=== PATIENT | female | born 1945 | race Caucasian/White ===

== ENCOUNTER → 2019-01-01 15:47 | Outpatient (CLI) | payer MEDICARE, SELFPAY ==
[2019-01-01 17:13] LABS: AST(SGOT) 25 U/L (15-37); Alanine Aminotransfer ALT/SGPT 29 U/L (13-56); Albumin, Serum 3.7 g/dL (3.2-5.0); Alkaline Phosphatase 74 U/L (45-117); Anion Gap 8 (5-15); BUN 18 mg/dL (7-18); Calcium,Total 8.9 mg/dL (8.5-10.1); Chloride 106 mmol/L (98-107); Cholesterol 151 mg/dL (200); Creatinine, Serum 0.64 mg/dL (0.55-1.02); EST Glomerular Filtration Rate 96 mL/min (>60); Est Glom Filt Rate - Afr Amer 116 mL/min (>60); Globulin 3.6 g/dL (2.2-4.2); Glucose 92 mg/dL (74-106); High Density Lipoprotein 58 mg/dL; Potassium 4.4 mmol/L (3.5-5.1); Protein, Total 7.3 g/dL (6.4-8.2); Sodium Level 138 mmol/L (136-145); Triglycerides 81 mg/dL; Very Low Density Lipoprotein 16 mg/dL (5-40)
== END ==
PROVIDERS: Family Provider Family Medicine; PCP Family Medicine; Referring Provider Family Medicine; Visit Provider Family Medicine
DX: E78.5 Hyperlipidemia, unspecified (principal); I10 Essential (primary) hypertension
CPT/HCPCS: 80053; 80061

== ENCOUNTER 2019-06-14 17:53 | Emergency (ER) | payer MEDICARE, SELFPAY ==
[2019-06-14 17:54] VITALS: BP 158/98; PULSE 71; RESP 16; TEMP 36.6; O2SAT 97; BMI 31.0
--- NOTE | 2019-06-14 18:21 | EKG12_ITS ---
Test Reason : CP Blood Pressure : / mmHG Vent. Rate : 067 BPM Atrial Rate : 067 BPM P-R Int : 170 ms QRS Dur : 088 ms QT Int : 426 ms P-R-T Axes : 053 040 050 degrees QTc Int : 450 ms Normal sinus rhythm Normal ECG Confirmed by KENDRICK BRAY, RIGOBERTO ([id number]), advertising editor KOMAL BURRELL ([id number]) on 06/16/2019 1:51:26 PM Referred By: LEAH/SORAYA Confirmed By:RIGOBERTO MARKS MD
--- NOTE | 2019-06-14 18:25 | RAD_ITS ---
STUDY: X-RAY CHEST REASON FOR EXAM: Female, 73 years old. patient complains of neck and shoulder pain TECHNIQUE: Frontal view of the chest COMPARISON: None. FINDINGS: The lungs are clear and expanded. There is no demonstrated pleural abnormality. Normal size heart. Normal mediastinum and airam. Normal visualized pulmonary arteries. Normal visualized aortic arch and descending thoracic aorta. Normal visualized thoracic spine. Normal visualized ribs, clavicles, and shoulders. There is no demonstrated abnormality of the visualized soft tissue structures of the upper abdomen. RAD/Chest 1 View (Portable) IMPRESSION: Normal x-ray examination of the chest. Electronically Signed: Lidia Fournier, at 18:46 EST Tel , Service support ,
[2019-06-14 18:31] VITALS: PULSE 77; RESP 16; O2SAT 97
--- NOTE | 2019-06-14 18:39 | ED.DCSUM_ITS ---
- ER Visit Summary Date of Service: 06/14/19 Chief Complaint: Chest and now back pain History of Present Illness: The patient is a 73 F past medical history of Ovalle's palsy, meningioma, hypertension high cholesterol. No prior cardiac disease. States the last week she has had intermittent chest pain not associated with exertion. No shortness of breath, nausea or diaphoresis. Worse with movement of her left arm. That is since resolved. She said she was taken ibuprofen which made the pain better. And now she has right-sided posterior upper back and neck pain. Worse with head movement. 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 Physical Examination: All signs are stable afebrile. Pulse ox 97% room air no signs hypoxia. H EENT exam unremarkable. Neck right trapezius tenderness the same pain she is having. Worse with head movement. No meningismus. No lymphadenopathy. Lungs clear to auscultation bilaterally. Heart regular rate and rhythm no murmur. Rate about 70. No murmur. Chest wall nontender. Ab domen soft nontender normal bowel sounds no peritoneal signs. Patient moving all 4 extremities. Neurovascular intact. 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 Equal symmetrical dorsi plantarflexion. Calves nontender without edema or cords. Neurologically she is awake alert with no focal motor deficits. Exam is consistent with musculoskeletal back pain. Test Results: EKG shows a sinus rhythm rate of 67 with no acute signs of ID or ischemia. Unchanged from prior EKG from last year and before. 1 view chest x-ray read both by myself and radiologist shows no acute abnormality. Normal cardiac silhouette mediastinum. CBC normal. Chemistries normal. Troponin normal. Emergency Department Course and Treatment: Patient will undergo cardiac work-up even though clinically this sounds like it is musculoskeletal pain. Treatment Plan: Work-up negative. History more consistent with a musculoskeletal etiology. Discharged home outpatient follow-up. Tylenol and/or Motrin for pain. Disposition: Discharge Impression: She has skeletal back and chest pain This note was generated with [employer] dictation software. It may contain incorrect words, spelling, and punctuation that were not noted in review of the chart prior to signing ED Disposition - Plan for ED Patient: Referrals: Cortez Ordaz III, MD [Primary Care Provider] -
[2019-06-14 18:46] LABS: Absolute Lymphocyte Count 1.89 X10^3/uL (0.83-4.51); Absolute Neutrophil Count 3.5 X10^3/uL (2.0-7.7); Basophil# 0.06 X10^3/uL; Basophil% 0.9 % (0-1); Eosinophil# 0.39 X10^3/uL; Eosinophils% 6.1 % (0-5); Hematocrit 38.8 % (37-47); Hemoglobin 12.6 g/dL (12.0-15.0); Lymphocyte # 1.89 X10^3/ul (4.0); Lymphocyte % 29.3 % (19-41); Mean Corp Hgb Conc 32.5 g/dL (32-36); Mean Corpuscular Hgb 27.8 pg (27.0-32.0); Mean Corpuscular Volume 85.7 fL (81-99); Mean Platelet Vol. 8.7 fl (6.2-12.0); Monocyte# 0.57 X10^3/uL; Monocyte% 8.9 % (0-10); NRBC Flagged by Analyzer 0 % (0-5); Neutrophil # 3.51 X10^3/uL (2.7-7.7); Neutrophil % 54.5 % (47-70); Platelet Count 294 K/mm3 (150-450); RBC Distribution Width CV 12.7 % (11.6-14.6); RBC Distribution Width SD 39.8 fl (35.1-43.9); Red Blood Count 4.53 M/mm3 (4.2-5.4); White Blood Count 6.4 K/mm3 (4.4-11.0)
[2019-06-14 19:06] LABS: Anion Gap 5 (5-15); BUN 22 mg/dL (7-18); BUN/Creat Ratio 33.9 RATIO (10-20); Chloride 106 mmol/L (98-107); Creatinine, Serum 0.65 mg/dL (0.55-1.02); EST Glomerular Filtration Rate 94 mL/min (>60); Est Glom Filt Rate - Afr Amer 114 mL/min (>60); Estimated Creatinine Clearance 40.21 ml/min; Glucose 88 mg/dL (74-106); Potassium 3.9 mmol/L (3.5-5.1); Sodium Level 139 mmol/L (136-145)
--- NOTE | 2019-06-14 19:30 | ED.DEP ---
ED Disposition - Plan for ED Patient: Disposition: Home or Assisted Living Referrals: Cortez Ordaz III, MD [Primary Care Provider] - 3-5 Days if not improving Additional Instructions: Peers to be musculoskeletal pain. Hot shower, warm bath and massage. Tylenol and Motrin for pain. Follow-up with your doctor if not improving or return to the ER if feeling a lot worse.
[2019-06-14 19:50] VITALS: PULSE 65; RESP 16; O2SAT 98
== END 2019-06-14 19:51 | disposition home or self-care (01) ==
PROVIDERS: Emergency Provider Emergency Medicine; PCP Family Medicine
DX: R07.89 Other chest pain (principal); M54.2 Cervicalgia; I10 Essential (primary) hypertension; E78.00 Pure hypercholesterolemia, unspecified
CPT/HCPCS: 71045; 80048; 84484; 85025; 93005; 99285; A4216

== ENCOUNTER → 2020-07-03 | Outpatient (CLI) | payer MEDICARE, SELFPAY ==
[2020-07-03 16:09] LABS: Cholesterol 149 mg/dL (200); High Density Lipoprotein 62 mg/dL; Triglycerides 79 mg/dL; Very Low Density Lipoprotein 16 mg/dL (5-40)
[2020-07-03 16:14] LABS: Hemoglobin A1c 5.6 % (3.8-5.6)
== END | disposition home or self-care (01) ==
LOC: LABSPEC 15:17
PROVIDERS: PCP Family Medicine; Visit Provider Nurse Practitioner Family
DX: E78.5 Hyperlipidemia, unspecified (principal); Z79.899 Other long term (current) drug therapy
CPT/HCPCS: 80061; 83036